=== PATIENT | female | born 1950 | race Caucasian/White ===

== ENCOUNTER 2019-05-22 07:34 | Outpatient (CLI) | payer MEDICARE, BC, OTHER ==
--- NOTE | 2019-05-22 10:40 | MRI ---
MRI LUMBAR SPINE WITHOUT CONTRAST: Date: 05/22/19 INDICATION: History of lumbar radiculopathy and bilateral hip pain. COMPARISON: None. FINDINGS: Bone marrow signal intensity appears within normal limits. The visualized retroperitoneum and paraver tebral soft tissues are normal appearing. At L5-S1, there is a broad based bulge with moderate facet joint degenerative change. There is mild n eural foraminal encroachment, but no definite impingement. At L4-5, there is a broad based bulge with moderate facet joint degenerative change and ligamentum hy pertrophy inducing mild central canal narrowing and mild neural foraminal narrowing bilaterally. At L3-4, there is a broad based bulge with facet hypertrophy, with mild neural foraminal narrowing. At L2-3, there is a broad based bulge. No appreciable central canal or neural foraminal narrowing. At L1-2, there is a broad based bulge, but no appreciated central canal or neural foraminal narrowing . At T12-L1, there is a mild broad based bulge, no appreciable central canal or neural foraminal narrow ing. IMPRESSION: Mild spondylosis of lumbar spine with mild neural foraminal narrowing as detailed above. Mild central canal narrowing is seen at L4-5. POS: OFF
== END 2019-05-22 07:35 | disposition home or self-care (01) ==
LOC: BICMRI 07:34
PROVIDERS: ATTEND Orthopaedic Surgery
DX: M47.26 Other spondylosis with radiculopathy, lumbar region (principal); M48.061 Spinal stenosis, lumbar region without neurogenic claudication
CPT/HCPCS: 72148

== ENCOUNTER 2019-08-11 09:31 | Emergency (ER) | payer MEDICARE, BC, OTHER ==
--- NOTE | 2019-08-11 10:34 | RAD ---
EXAM: Two views chest PROVIDED CLINICAL HISTORY: Cough COMPARISON: 04/25/2009 FINDINGS: Cardiac and mediastinal silhouette appears within normal limits. Lungs appear free of significant opa city. No pleural fluid or pneumothorax apparent. IMPRESSION: No evidence for an acute cardiopulmonary process.
[2019-08-11] MEDS ORDERED: Dexamethasone 10 MG/ML VIAL ONE (10:59)
== END 2019-08-11 11:10 | disposition home or self-care (01) ==
LOC: ERS 09:31
DX: J18.9 Pneumonia, unspecified organism (principal); R06.2 Wheezing
CPT/HCPCS: 71046; 87804; J1100

== ENCOUNTER 2019-08-13 08:49 | Inpatient (IN) | payer MEDICARE, BC, OTHER ==
[2019-08-13 09:24] LABS: #Basophils 0.1 thou/uL (0.0-0.2); #Eosinphils 0.3 thou/uL (0.0-0.7); #Lymphocytes 1.4 thou/uL (1.20-3.40); #Monocytes 1.1 thou/uL (0.11-0.59); #Neutrophils 9.5 thou/uL (1.40-6.50); %Basophils 0.6 % (0.0-1.0); %Eosinophils 2.2 % (0.0-10.0); %Lymphocytes 11.6 % (21.0-51.0); %Monocytes 8.7 % (0.0-10.0); Hemoglobin 13.8 g/dL (12.0-16.0); Mean Corpuscular HGB CONC 33.6 g/dL (32.0-36.0); Mean Corpuscular Hemoglobin 31.4 pg (27.0-31.0); Mean Corpuscular Volume 93.5 fL (78.0-98.0); Mean Platelet Volume 7.3 fL (7.4-10.4); Platelet Count 229 thou/uL (130-400); RBC Distribution Width 12.8 % (11.5-14.5); White Blood Cell (WBC) Count 12.3 thou/uL (4.8-10.8)
--- NOTE | 2019-08-13 09:32 | RAD ---
XR Chest 1 View Portable HISTORY: Cough and shortness of breath COMPARISON: None. FINDINGS: Heart size is within normal limits. There are atherosclerotic changes of the aorta. The isidra gs show chronic change. IMPRESSION: No active intrathoracic disease.
[2019-08-13 09:38] LABS: AST (SGOT) 19 U/L (5-34); Albumin 3.9 g/dL (3.4-4.8); Anion Gap 14 mmol/L (10-20); BUN (Urea Nitrogen) 14 mg/dL (9.8-20.1); Bilirubin, Total 0.4 mg/dL (0.2-1.2); Calc. Creatinine Clearance 0 mL/min (70-130); Calcium 8.7 mg/dL (7.8-10.44); Carbon Dioxide 25 mmol/L (23-31); Chloride 88 mmol/L (98-107); Estimated GFR-MDRD 53; Globulin 2.9 g/dL (2.4-3.5); Glucose 87 mg/dL (80-115); Protein, Total 6.8 g/dL (6.0-8.3); Sodium 124 mmol/L (136-145)
[2019-08-13 09:47] LABS: ALT (SGPT) 17 U/L (8-55); Alkaline Phosphatase 72 U/L (40-110)
[2019-08-13] MEDS ORDERED: Labetalol HCl 100 MG/20 ML VIAL ONE (11:11)
--- NOTE | 2019-08-13 11:53 | CT ---
CTA CHEST WITH CONTRAST: INDICATIONS: Shortness of breath. Tachycardia. Concern for pulmonary embolus. Recent diagnosis of pneumonia. TECHNIQUE: Axial tomograms obtained with multiplanar reconstruction and 3D post processing following angio han col. FINDINGS: The pulmonary arteries show adequate enhancement. No evidence of pulmonary embolus identified. The lungs show chronic lung parenchymal change. There is hyperexpansion. Mild interstitial thickening in the periphery of both lungs is probably chronic. There is patchy infiltrate and/or atelectasis in the posterior left lung base, which may represent mild pneumonia infiltrate. There is nonspecific mediastinal and hilar adenopathy. Paratracheal lymph node is enlarged, measuring up to 1.8 cm. There are prominent carinal and subcarinal lymph nodes and there are mildly enlarged b ilateral hilar lymph nodes. Images through the upper abdomen are unremarkable. IMPRESSION: 1. Patchy infiltrate which has somewhat of a nodular appearance in the posterior left lung base. Foll owup recommended. 2. There are chronic lung parenchymal changes, as described. 3. Nonspecific mediastinal and hilar adenopathy. POS: [facility]
[2019-08-13] MEDS ORDERED: Albuterol Sulfate 2.5 mg/0.5 ml Neb ONE ×2 (12:33→12:35)
[2019-08-13] MEDS ORDERED: Ipratropium Bromide 2.5 ml Neb ONE (12:33)
[2019-08-13] MEDS ORDERED: Ondansetron PF 4 MG/2 ML Vial IVP PRN (16:45)
--- NOTE | 2019-08-13 16:50 | PDOC.HHP ---
Hospitalist HPI - History of Present Illness Shortness of breath History of Present Illness: Ms. Rodríguez is 69 y/o female with hypertension who presented to the ED with c/o shortness of breath. patient was seen at the ER with same complaints 2 days ago , diagnosed with CAP and discharged on doxycycline. She presents back today as her symptoms have worsened. She has associated productive cough with greenish yellow sputum and fever 100.5F. She has a sick contact (her ) who remains with similar symptoms. Their symptoms both started during a 2 weeks cruise last month. Cough was initially non productive. She reports that she is now allergic to doxycycline as she started wheezing more after using the medication. Hospitalist ROS - Review of Systems Constitutional: reports: fever, chills, weakness, malaise Respiratory: reports: cough, shortness of breath, SOB with excertion, pleuritic pain, sputum, wheezing Cardiovascular: reports: chest pain All other systems reviewed; all pertinent +/- noted in HPI/Subj Hospitalist History - Past Medical History Pulmonary: reports: hypertension - Past Surgical History Past Surgical History: reports: Cataract Removal, Total Knee Replacement - Family History Family History: reports: hypertension - Social History Smoking Status: Former smoker (Quit 35 years ago) Alcohol: reports: None Drugs: reports: none Living Situation: With Family - Exam General Appearance: ill appearing Eye: PERRL, anicteric sclera ENT: normocephalic atraumatic Neck: supple, symmetric Heart: RRR, no murmur, no gallops Respiratory: rales, tachypneic, wheezes Gastrointestinal: soft, non-tender, no palpable masses, no guarding Skin: normal turgor, no lesions Neurological: cranial nerve grossly intact, no focal deficits Musculoskeletal: normal tone, normal strength Psychiatric: normal affect, oriented to place Hospitalist Results - Labs Result Diagrams: 08/13/19 09:11 08/13/19 09:11 Lab results: WBC 12.3 thou/uL (4.8-10.8) H 08/13/19 09:11 Hgb 13.8 g/dL (12.0-16.0) 08/13/19 09:11 Hct 41.2 % (36.0-47.0) 08/13/19 09:11 MCV 93.5 fL (78.0-98.0) 08/13/19 09:11 Plt Count 229 thou/uL (130-400) 08/13/19 09:11 Neutrophils % 77.0 % (42.0-75.0) H 08/13/19 09:11 Sodium 124 mmol/L (136-145) L 08/13/19 09:11 Potassium 3.0 mmol/L (3.5-5.1) L 08/13/19 09:11 Chloride 88 mmol/L (98-107) L 08/13/19 09:11 Carbon Dioxide 25 mmol/L (23-31) 08/13/19 09:11 BUN 14 mg/dL (9.8-20.1) 08/13/19 09:11 Creatinine 1.03 mg/dL (0.6-1.1) 08/13/19 09:11 Glucose 87 mg/dL (80-115) 08/13/19 09:11 Lactic Acid 1.2 mmol/L (0.5-2.2) 08/13/19 09:11 Calcium 8.7 mg/dL (7.8-10.44) 08/13/19 09:11 Total Bilirubin 0.4 mg/dL (0.2-1.2) 08/13/19 09:11 AST 19 U/L (5-34) 08/13/19 09:11 ALT 17 U/L (8-55) 08/13/19 09:11 Alkaline Phosphatase 72 U/L (40-110) 08/13/19 09:11 B-Natriuretic Peptide 25.1 pg/mL (0-100) 08/13/19 09:15 Serum Total Protein 6.8 g/dL (6.0-8.3) 08/13/19 09:11 Albumin 3.9 g/dL (3.4-4.8) 08/13/19 09:11 Hospitalist H&P A/P - Plan Plan: Ms Rodríguez is 69 y/o female pw SOB cw CAP # Sepsis secondary to CAP- meeting SIRS with leukocytosis and tachypnea. CT chest with LL patchy infiltrates cw pneumonia. -IV hydration to maintain perfusion. Lactic acid is wnl. -cultures, urine legionella and strep -IV ceftriaxone and azithromycin. was dc'd on doxycycline from ER -Trend labs. #Dyspnea- Related to acute pulm pathology. CTA chest ruled out PE. Probable COPD given hyperextension reported on CT chest. - patient is declining use of steriods and duoneb citing allergies. - received and tolerated decadron in the ER. - for now, supplemental oxygen and IS - will consider xopenex - consult online activist for assistance. #Hypertension- will resume antihypertensive once uploaded. #Hyponatremia- Hypovolemic due to acute illness. -IV hydration -Trend Na. #Hypokalemia- replace DVT ppx- lovenox Patient is full code. Her spouse at bedside is ROBSON
[2019-08-13 18:07] LABS: Troponin I 0.018 ng/mL (< 0.028)
[2019-08-13 18:14] VITALS: BMI 29.8
[2019-08-13] MEDS: Sodium Chloride 0.9% 1,000 ML IV SCH (20:38)
[2019-08-13] MEDS: Potassium Chloride 20 MEQ TAB PO SCH (20:38)
[2019-08-13] MEDS: cefTRIAXone\\ROCEPHIN 1 GM in Sodium Chloride 0.9% 100 ML IVPB SCH (20:50)
[2019-08-13] MEDS: Acetaminophen 325 MG TAB PO PRN (22:03)
[2019-08-13] MEDS: Azithromycin 500 MG in Sodium Chloride 0.9% 250 ML 250 ML IVPB SCH (22:58)
[2019-08-13] MEDS: Levalbuterol HCl 0.63 MG/3 ML NEB NEB SCH (23:08)
[2019-08-13 23:16] LABS: Legionella Urinary Ag Negative (Negative); Strep pneumo Urine Ag NEGATIVE (NEGATIVE)
[2019-08-14] MEDS: Levalbuterol HCl 0.63 MG/3 ML NEB NEB SCH ×3 (07:21→15:29)
[2019-08-14] MEDS: Sodium Chloride 0.9% 1,000 ML IV SCH (08:00)
[2019-08-14 12:06] LABS: Hemoglobin 13.2 g/dL (12.0-16.0); Mean Corpuscular HGB CONC 34.4 g/dL (32.0-36.0); Mean Corpuscular Hemoglobin 31.9 pg (27.0-31.0); Mean Corpuscular Volume 92.9 fL (78.0-98.0); Mean Platelet Volume 6.8 fL (7.4-10.4); Platelet Count 214 thou/uL (130-400); RBC Distribution Width 12.8 % (11.5-14.5); Red Blood Cell (RBC) Count 4.14 mill/uL (4.20-5.40); White Blood Cell (WBC) Count 7.9 thou/uL (4.8-10.8)
[2019-08-14 12:29] LABS: Anion Gap 13 mmol/L (10-20); BUN (Urea Nitrogen) 6 mg/dL (9.8-20.1); Calc. Creatinine Clearance 89 mL/min (70-130); Calcium 9.8 mg/dL (7.8-10.44); Carbon Dioxide 26 mmol/L (23-31); Chloride 99 mmol/L (98-107); Estimated GFR-MDRD 72; Glucose 130 mg/dL (80-115); Potassium 3.1 mmol/L (3.5-5.1); Sodium 135 mmol/L (136-145)
[2019-08-14] MEDS ORDERED: Potassium Chloride 20 MEQ TAB PO SCH ×2 (13:15→18:00)
--- NOTE | 2019-08-14 14:51 | CON ---
DATE OF CONSULTATION: HISTORY OF PRESENT ILLNESS: Ms. Rodríguez is a 69-year-old female, who has, for several weeks, had a cough. She has seen her doctor twice, had been to the emergency room recently. She has seen on 08/11 in the ER and then again yesterday and admitted. A CT pulmonary angiogram was done in the emergency room shows a tiny infiltrate in her left base. There are no pulmonary infiltrates seen. PAST MEDICAL HISTORY: Remarkable for hypertension, cataract surgery, and knee replacement. FAMILY HISTORY: Negative for lung disease in early age. SOCIAL HISTORY: She told me she has never smoked, but the admitting physician says she smoked until 35 years ago. I doubt she has smoked enough to do any damage. She is not a drinker. She does not use drugs. Her is in the room with her. REVIEW OF SYSTEMS: Ten-point review of systems is otherwise negative. Her main complaint is cough and fatigue. PHYSICAL EXAMINATION: VITAL SIGNS: This was interesting. She is afebrile. Heart rate is 92, respiratory rate is 20, oximetry is 92% to 95% on room air, and blood pressure 150/67. GENERAL: She was coughing when I walked in the room. She was talking in one word sentences and coughing continuously. I suggested trying Phenergan with codeine to suppress her cough in the evenings and she went from talking in one word sentences to in a very loud voice telling me that she is allergic to everything and please look at the list in the computer at the nurse's station. She went from one word sentences to complete sentences with one breath in a very loud voice HEAD AND NECK: Unremarkable. LUNGS: Clear. HEART: Regular rhythm. ABDOMEN: Soft. EXTREMITIES: Without clubbing, cyanosis, or edema. ALLERGIES: REPORTED ALBUTEROL, AMLODIPINE, AZILSARTAN, COREG, CHLORTHALIDONE , CODEINE, WELCHOL, CYMBALTA, RODY, HYDRALAZINE, HYDROCHLOROTHIAZIDE, LISINOPRIL, SOLU-MEDROL, NONSTEROIDALS, BENICAR, PREDNISONE, LYRICA, AND CRESTOR. IMPRESSION: Subacute illness with a significant cough. This still could be viral. If she has pneumonia, it is a tiny infiltrate in her left base. Her behavior while I was in the room suggests that there is some component of secondary gain from this illness. There really are not any other therapeutic options from my standpoint other than possibly adding Tessalon Perles to suppress her cough or Robitussin DM cough syrup. She has no history of asthma or chronic obstructive pulmonary disease. There is nothing to suggest that she has pulmonary fibrosis or interstitial lung disease. We will sign off and see her as needed in the future. I would recommend a follow up noncontrast chest CT in 4-6 weeks to confirm abnormalities at lung base cleared. Job ID: [id number] [facility]
[2019-08-14] MEDS: Potassium Chloride 20 MEQ TAB PO SCH (15:00)
--- NOTE | 2019-08-14 15:29 | PDOC.HOSPP ---
- Subjective Encounter Date: 08/14/19 Encounter Time: 15:26 Subjective: THe patient reports persistent shortness of breath since the weekend, productive cough with yellow phlegm, chest congestion. She says she feels hot, fever for her is greater than 97.5 temperature. She denies chest pain. She feels no improvement with persistent antibiotics. She has never had a heart attack before. - Objective Vital Signs & Weight: Vital Signs (12 hours) Temp Pulse Resp BP Pulse Ox 08/14/19 15:10 106 H 95 08/14/19 07:58 97.7 F 92 20 150/67 H 95 08/14/19 07:21 89 20 99 08/14/19 03:47 97.9 F 97 20 151/73 H 94 L Weight Admit Weight 185 lb Weight 185 lb I&O: 08/13/19 08/14/19 08/15/19 06:59 06:59 06:59 Intake Total 2280 Output Total 1400 Balance 880 Result Diagrams: 08/14/19 11:57 08/14/19 11:57 Hospitalist ROS - Medication Medications: Active Medications Generic Name Dose Route Start Last Admin Trade Name Freq PRN Reason Stop Dose Admin Acetaminophen 650 mg 08/13/19 16:45 08/13/19 22:03 Tylenol PO 650 mg Q6H PRN Administration Fever > 101 Azithromycin 500 mg/ Sodium 250 mls @ 250 mls/hr 08/13/19 21:00 08/13/19 22: 58 Chloride IVPB 250 mls Q24HR MADELIN Administration Ceftriaxone Sodium 1 gm/ 100 mls @ 200 mls/hr 08/13/19 20:00 08/13/19 20:50 Sodium Chloride IVPB 100 mls Q24HR MADELIN Administration Sodium Chloride 1,000 mls @ 100 mls/hr 08/13/19 16:45 08/14/19 08:00 Normal Saline 0.9% IV 1,000 mls .Q10H MADELIN Administration Levalbuterol HCl 0.63 mg 08/13/19 23:00 08/14/19 15:10 Xopenex NEB 0.63 mg [id number] MADELIN Administration - Exam General Appearance: NAD, awake alert Eye: PERRL, anicteric sclera ENT: normocephalic atraumatic, no oropharyngeal lesions Neck: supple, symmetric, no JVD, no thyromegaly Heart: RRR, no murmur, no gallops, no rubs Respiratory - other findings: bilateral diffuse crackles Gastrointestinal: soft, non-tender, non-distended, normal bowel sounds Extremities: no cyanosis, no clubbing, no edema Skin: normal turgor, no lesions, no rashes Neurological: cranial nerve grossly intact, normal sensation to touch, no focal deficits, no new deficit Hosp A/P - Plan Chest X ray: no acute disease CTA thorax: patchy infiltrate with somewhat nodular appearance in the posterior left lung. Nonspecific mediastinal and hilar adenopathy This is a 69 year old female who presented with persistent shortness of breath since tuesday, had no improvement with doxycycline at home Acute hypoxic respiratory failure possibliy secondary to LLL pneumonia vs cardiac etiology - CTA showed no PE but LLL infiltrate with mediastinal and hilar adenopathy - started on ceftriaxone and azithromycin, however has persistent rales/cough/ shortness of breath. WBC down to normal from 12 yesterday -continue current antibiotics for now given improvement in leukocytosis. Urine legionella and urine strep negative - will check procalcitonin, troponins x 2 , ECHO. If spikes fever, will consider switching to vanc and zosyn. Blood cultures negative x 2, flu negative , will check respiratory viral panel - atrovent scheduled - mucinex scheduled - pulm consulted, did not think this was pulmonary fibrosis. Patient denies fevers, chills, night sweats or weight loss Hypokalemia - potassium 3.1, given 40 meq, will recheck Hyponatremia - improved from 124 to 135 - will stop IV fluids given significant jump in sodium DVT prophylaxis: lovenox Code status: full code
[2019-08-14] MEDS ORDERED: Ipratropium Bromide 2.5 ml Neb NEB PRN (15:32)
[2019-08-14 17:19] LABS: Hemoglobin 12.8 g/dL (12.0-16.0); Mean Corpuscular HGB CONC 33.9 g/dL (32.0-36.0); Mean Corpuscular Hemoglobin 31.2 pg (27.0-31.0); Mean Corpuscular Volume 92.3 fL (78.0-98.0); Mean Platelet Volume 7.3 fL (7.4-10.4); Platelet Count 211 thou/uL (130-400); RBC Distribution Width 12.7 % (11.5-14.5); White Blood Cell (WBC) Count 8.8 thou/uL (4.8-10.8)
[2019-08-14 17:26] LABS: Potassium 3.2 mmol/L (3.5-5.1)
[2019-08-14] MEDS: Ipratropium Bromide 2.5 ml Neb NEB SCH (18:04)
[2019-08-14] MEDS: cefTRIAXone\\ROCEPHIN 1 GM in Sodium Chloride 0.9% 100 ML IVPB SCH (20:47)
[2019-08-14] MEDS: Azithromycin 500 MG in Sodium Chloride 0.9% 250 ML 250 ML IVPB SCH (20:47)
[2019-08-14] MEDS: Acetaminophen 325 MG TAB PO PRN (20:48)
[2019-08-14] MEDS: Enoxaparin Sodium 40 MG/0.4 ML SYRINGE SC SCH (20:48)
[2019-08-15] MEDS: Ipratropium Bromide 2.5 ml Neb NEB SCH ×2 (00:24→07:19)
[2019-08-15 05:08] LABS: Anion Gap 13 mmol/L (10-20); BUN (Urea Nitrogen) 7 mg/dL (9.8-20.1); Calc. Creatinine Clearance 91 mL/min (70-130); Calcium 9.9 mg/dL (7.8-10.44); Carbon Dioxide 25 mmol/L (23-31); Chloride 100 mmol/L (98-107); Estimated GFR-MDRD 74; Glucose 99 mg/dL (80-115); Potassium 3.5 mmol/L (3.5-5.1); Sodium 134 mmol/L (136-145)
[2019-08-15] MEDS ORDERED: Benzonatate 100 MG CAP PO PRN (11:36)
--- NOTE | 2019-08-15 11:44 | PDOC.HOSPP ---
- Subjective Encounter Date: 08/15/19 Encounter Time: 11:42 Subjective: THe patient continues to complain of productive cough with yellow phlegm. Shortness of breath has improved. Patient upset about frequent blood draws. Explained about troponins and how labs are drawn early in the morning here. Advised that patient does not need labs tomorrow. Asked about medicine for cough. Patient states duoneb makes her choke, albuterol makes her throat swell, mucinex she is allergic too, tessalon pearls didn't work in the past but she is willing to try it again. Also gives history of allergies. She states claritin didn't work for her, zoey gave her hives. She has not tried zyrtec before. Patient asked why she isn't getting her HCTZ, explained her potassium was low yesterday and will plan to hold unless BP goes up significantly - Objective Vital Signs & Weight: Vital Signs (12 hours) Temp Pulse Resp BP Pulse Ox 08/15/19 11:05 97.7 F 88 18 151/70 H 94 L 08/15/19 08:35 97.8 F 65 20 169/78 H 94 L 08/15/19 05:00 97.9 F 84 16 148/69 H 93 L 08/15/19 00:24 81 16 95 Weight Admit Weight 185 lb Weight 187 lb 9.6 oz I&O: 08/14/19 08/15/19 08/16/19 06:59 06:59 06:59 Intake Total 2280 680 Output Total 1400 Balance 880 680 Result Diagrams: 08/14/19 16:51 08/15/19 04:24 Additional Labs: Accuchecks 08/14/19 17:15 POC Glucose 114 H Hospitalist ROS - Review of Systems Constitutional: denies: fever, chills Respiratory: reports: cough Cardiovascular: denies: chest pain, palpitations - Medication Medications: Active Medications Generic Name Dose Route Start Last Admin Trade Name Freq PRN Reason Stop Dose Admin Acetaminophen 650 mg 08/13/19 16:45 08/14/19 20:48 Tylenol PO 650 mg Q6H PRN Administration Fever > 101 Enoxaparin Sodium 40 mg 08/14/19 21:00 08/14/19 20:48 Lovenox SC 40 mg 2100 MADELIN Administration Azithromycin 500 mg/ Sodium 250 mls @ 250 mls/hr 12/23/19 21:00 08/14/19 20: 47 Chloride IVPB 250 mls Q24HR MADELIN Administration Ceftriaxone Sodium 1 gm/ 100 mls @ 200 mls/hr 08/13/19 20:00 08/14/19 20:47 Sodium Chloride IVPB 100 mls Q24HR MADELIN Administration - Exam General Appearance: NAD, awake alert Eye: PERRL, anicteric sclera ENT: normocephalic atraumatic, no oropharyngeal lesions Neck: supple, symmetric, no JVD, no thyromegaly, no carotid bruit Heart: RRR, no murmur, no gallops, no rubs Respiratory - other findings: crackles left lower lobe Gastrointestinal: soft, non-tender, non-distended, normal bowel sounds Extremities: no cyanosis, no clubbing, no edema Hosp A/P - Plan Chest X ray: no acute disease CTA thorax: patchy infiltrate with somewhat nodular appearance in the posterior left lung. Nonspecific mediastinal and hilar adenopathy This is a 69 year old female who presented with persistent shortness of breath since tuesday, had no improvement with doxycycline at home #Acute hypoxic respiratory failure possibliy secondary to LLL pneumonia vs cardiac etiology #Cough - CTA showed no PE but LLL infiltrate with mediastinal and hilar adenopathy - continue ceftriaxone and azithromycin. Procalcitonin negative however has improvement with antibiotics - Urine legionella and urine strep negative - troponin negative times three, ECHO pending, respiratory viral panel negative - add tessalon pearls prn - trial of zyrtec daily. Patient wants to be watched for adverse effects while taking it. Also add pepcid 20 mg bid - pulm consulted, did not think this was pulmonary fibrosis. Patient denies fevers, chills, night sweats or weight loss Hypokalemia-resolved Hyponatremia- resolved DVT prophylaxis: lovenox Code status: full code
[2019-08-15] MEDS: Enoxaparin Sodium 40 MG/0.4 ML SYRINGE SC SCH (20:16)
[2019-08-15] MEDS: cefTRIAXone\\ROCEPHIN 1 GM in Sodium Chloride 0.9% 100 ML IVPB SCH (20:16)
[2019-08-15] MEDS: Famotidine 20 MG TAB PO SCH (20:16)
[2019-08-15] MEDS: Azithromycin 500 MG in Sodium Chloride 0.9% 250 ML 250 ML IVPB SCH (20:16)
[2019-08-15] MEDS: guaiFENesin/DM ER PO SCH (20:17)
[2019-08-15] MEDS: Acetaminophen 325 MG TAB PO PRN (21:43)
[2019-08-16] MEDS ORDERED: Loratadine 10 MG TAB PO SCH ×2 (09:00→10:45)
[2019-08-16] MEDS: guaiFENesin/DM ER PO SCH (09:57)
--- NOTE | 2019-08-16 10:02 | PDOC.HOSPP ---
- Subjective Encounter Date: 08/16/19 Encounter Time: 12:00 Subjective: Patient reports unchanged cough. SOB a bit better. Eating a bit better also. - Objective Vital Signs & Weight: Vital Signs (12 hours) Temp Pulse Resp BP Pulse Ox 08/16/19 09:18 93 L 08/16/19 08:00 97.8 F 83 18 147/70 H 93 L 08/16/19 04:00 98.4 F 80 20 146/68 H 94 L Weight Admit Weight 185 lb Weight 189 lb I&O: 08/15/19 08/16/19 08/17/19 06:59 06:59 06:59 Intake Total 680 1340 Output Total 700 Balance 680 640 Result Diagrams: 08/14/19 16:51 08/15/19 04:24 Hospitalist ROS - Review of Systems Constitutional: denies: fever, chills Respiratory: reports: cough. denies: shortness of breath Cardiovascular: denies: chest pain, palpitations, orthopnea Gastrointestinal: denies: nausea, vomiting, abdominal pain - Medication Medications: Active Medications Generic Name Dose Route Start Last Admin Trade Name Freq PRN Reason Stop Dose Admin Acetaminophen 650 mg 08/13/19 16:45 08/15/19 21:43 Tylenol PO 650 mg Q6H PRN Administration Fever > 101 Benzonatate 100 mg 08/15/19 11:36 08/15/19 13:40 Tessalon PO 100 mg Q4H PRN Administration Cough Enoxaparin Sodium 40 mg 08/14/19 21:00 08/15/19 20:16 Lovenox SC 40 mg 2100 MADELIN Administration Famotidine 20 mg 08/15/19 21:00 08/15/19 20:16 Pepcid PO Not Given BID MADELIN Guaifenesin/Dextromethorphan 1 tab 08/15/19 21:00 08/16/19 09:57 Mucinex Dm PO Not Given Q12HR MADELIN Azithromycin 500 mg/ Sodium 250 mls @ 250 mls/hr 08/13/19 21:00 08/15/19 20: 16 Chloride IVPB 250 mls Q24HR MADELIN Administration Ceftriaxone Sodium 1 gm/ 100 mls @ 200 mls/hr 08/13/19 20:00 08/15/19 20:16 Sodium Chloride IVPB 100 mls Q24HR MADELIN Administration Loratadine 10 mg 08/16/19 09:00 08/16/19 09:57 Claritin PO Not Given DAILY MADELIN - Exam General Appearance: NAD, awake alert Eye: anicteric sclera ENT: moist mucosa Heart: RRR, no murmur, no gallops, no rubs Respiratory: CTAB, no wheezes, no rales, no ronchi Respiratory - other findings: dry intermittent coughing fits Gastrointestinal: soft, non-tender, non-distended, normal bowel sounds Psychiatric: normal affect, normal behavior, A&O x 3 Hosp A/P (1) Pneumonia Code(s): J18.9 - PNEUMONIA, UNSPECIFIED ORGANISM Status: Acute Plan: likely viral, possibly very small pneumonia per CT, will switch to oral antibiotics (2) Acute respiratory failure with hypoxia Code(s): J96.01 - ACUTE RESPIRATORY FAILURE WITH HYPOXIA Status: Resolved Plan: off oxygen (3) Hypertension Code(s): I10 - ESSENTIAL (PRIMARY) HYPERTENSION Status: Acute - Plan continue antibiotics, respiratory therapy ECHO taken, results pending but will neg BNP and Troponins I suspect it will be normal Switch to oral antibiotics, d/c home today, f/u PCP
[2019-08-16] MEDS: Acetaminophen 325 MG TAB PO PRN (10:43)
[2019-08-16] MEDS: Famotidine 20 MG TAB PO SCH (10:50)
[2019-08-16] MEDS ORDERED: Chlorthalidone 25 MG TAB PO SCH (12:30)
[2019-08-16 14:27] VITALS: BP 114/57; TEMP 97.3
--- NOTE | 2019-08-16 16:28 | PDOC.EVN ---
Event Note - Event Note Event Note: Discharge Summary dictated: #[id number]
--- NOTE | 2019-08-16 16:58 | DIS ---
DATE OF ADMISSION: 08/13/2019 DATE OF DISCHARGE: 08/16/2019 PRIMARY CARE PHYSICIAN: Dr. Botello. REASON FOR ADMISSION: Pneumonia. DIAGNOSES AT DISCHARGE: 1. Pneumonia, likely viral, secondary to RSV. 2. Acute respiratory failure with hypoxia, resolved. 3. Hypertension. PROCEDURES: CT scan of the chest with and without contrast showing patchy infiltrate, which is somewhat of a nodular appearance of the posterior left lung base, along with chronic lung parenchymal changes and nonspecific mediastinal and hilar adenopathy. CONSULTATIONS: Pulmonology, Dr. Fleming. SUMMARY OF HOSPITAL COURSE: This is a 69-year-old white female with a prolonged cough greater than 3 weeks. She had some significant shortness of breath beginning on Tuesday, the day of admission, so she was seen in the emergency room. She had been diagnosed with community-acquired pneumonia in the ER 2 days previously and discharged on doxycycline, but the patient said that the symptoms have worsened. She came in with a fever of 100.5. The patient was positive for RSV in the emergency room. She had a CT scan with the above results. The patient was admitted and given IV antibiotics. She was a little bit hypoxic on room air when she first came in, so she was given supplementary oxygen. The patient improved during her hospitalization. Dr. lFeming saw her, reported that her CT was consistent with a viral illness, possibly a very tiny infiltrate from a pneumonia. The patient is limited and what medications she will take, she states most things either caused her to choke up or do not have any effect. We did recommend that she try Zyrtec. We did try some Tessalon Perles with her, which is only cough medicine that she says she can take it and did not help. The patient was doing well with continued cough, but no hypoxia the day of discharge, so she is being discharged home. DISCHARGE MANAGEMENT: Discharged home. FOLLOWUP: Follow up with her primary care physician, Dr. Botello in [address] Fleming in 3 to 4 weeks. ACTIVITY: As tolerated. DIET: Healthy heart diet. MEDICATIONS: 1. Azithromycin 250 mg p.o. daily for 2 more days. 2. Omnicef 300 mg twice a day for 4 more days. 3. Zyrtec [id number] 10 mg daily. 4. Continue acetaminophen as needed. 5. Chlorthalidone 25 mg daily. 6. Multivitamin daily. 7. Tramadol as needed for pain. Job ID: [id number]
[2019-08-16] MEDS ORDERED: Azithromycin 250 MG TAB PO SCH (18:00)
[2019-08-16] MEDS ORDERED: Cefdinir 300 MG CAP PO SCH (21:00)
--- NOTE | 2019-08-17 03:57 | PQF ---
[employer] KRISTINE See RYAN ANDREW MD [id number] [id number] CLINICAL DOCUMENTATION CLARIFICATION FORM: POST DISCHARGE Addendum to original discharge summary date: ____ Late entry note date: __ DATE: 08/17/2019 ATTN:LEANNE FUENTES MD Please exercise your independent, professional judgment in responding to the clarification form. Clinical indicators are provided on the bottom of this form for your review Please check appropriate box(s) to clarify if the following diagnosis has been ruled in or ruled out: ___SEPSIS (CDI/Coding list diagnosis here) [ X ] Ruled in diagnosis [ ] Continue to treat [ X ] Resolved [ ] Ruled out diagnosis [ ] Cannot rule out diagnosis [ ] Other diagnosis [ ] Unable to determine In addition, please specify: Present on Admission (POA): [ X ] Yes [ ] No [ ] Unable to determine For continuity of documentation, please document condition throughout progress notes and discharge summary. Thank You. CLINICAL INDICATORS - SIGNS / SYMPTOMS / LABS Fever 100.5 F - Documented in H&P on 08/13 by Brooke Magaña MD Sepsis 2/2 CAP - Documented in H&P on 08/13 by Brooke Magaña MD Respiration Rate 36 on 08/13 and 22 on 08/14 - Documented in Vital signs Pulse 107 on 08/15 - Documented in Vital signs BP 114/57 on 08/16 - Documented in Vital signs Meeting SIRS with Leukocytosis and tachypnea - Documented in H&P on 08/13 by Brooke Magaña MD Elevated WBC 12.3 on 08/13 - Documented in Laboratory RISK FACTORS RSV Pneumonia - Documented in DS on 08/16 by LEANNE NEWELL MD HTN Acute hypoxic respiratory failure - Documented in DS on 08/16 by LEANNE NEWELL MD TREATMENTS IV ceftriaxone and Azithromycin - Documented in H&P on 08/13 by Brooke Magaña MD Azithromycin 250 mg daily - Documented in DS on 08/16 by LEANNE NEWELL MD (This form is maintained as a part of the permanent medical record) 2014 [employer]. All Rights Reserved [email or web address] [not provided] MTDD
== END 2019-08-16 14:45 | disposition home or self-care (01) | DRG 871 ==
LOC: ERS 08:49 → 2SW 15:24 → OBSVTOIN 18:17 → 2NO 22:15
PROVIDERS: ADMIT Hospitalist; ATTEND Hospitalist
DX: A41.9 Sepsis, unspecified organism (principal); J12.1 Respiratory syncytial virus pneumonia; J96.01 Acute respiratory failure with hypoxia; E87.1 Hypo-osmolality and hyponatremia; Z87.891 Personal history of nicotine dependence; Z96.659 Presence of unspecified artificial knee joint; Z98.49 Cataract extraction status, unspecified eye; E87.6 Hypokalemia; I10 Essential (primary) hypertension; Z88.8 Allergy status to other drugs, medicaments and biological substances; Z88.5 Allergy status to narcotic agent
CPT/HCPCS: 36415; 36416; 71045; 71046; 71275; 80048; 80053; 83605; 83880; 84145; 84484; 85025; 85027; 87040; 87449; 87633; 87804; 87899; 93005; 93306; 94640; 96361; 96374; J0456; J0696; J1100; J1650; J3490; J7050; J7611; J7614

== ENCOUNTER 2020-01-24 10:17 | Outpatient (CLI) | payer MEDICARE, BC, OTHER ==
--- NOTE | 2020-01-24 12:20 | RAD ---
2 VIEW CHEST: Date: 01/24/2020 HISTORY: Cough and dyspnea. History of pneumonia. COMPARISON: 08/11/2019. FINDINGS: No evidence of focal infiltrate. Heart and mediastinum unremarkable. Vasculature normal. Mild interst itial prominence appears stable. IMPRESSION: No acute findings. No interval change. POS: AGW
== END 2020-01-24 10:18 | disposition home or self-care (01) ==
LOC: BICRAD 10:17
PROVIDERS: ATTEND Family Medicine
DX: Z87.01 Personal history of pneumonia (recurrent) (principal)
CPT/HCPCS: 71046

== ENCOUNTER 2021-12-13 10:34 | Inpatient (IN) | payer MEDICARE, BC, OTHER ==
[2021-12-13 11:05] LABS: #Eosinphils 0.2 thou/uL (0.0-0.7); #Lymphocytes 1.3 thou/uL (1.20-3.40); #Monocytes 0.5 thou/uL (0.11-0.59); %Basophils 0.8 % (0.0-1.0); %Eosinophils 2.8 % (0.0-10.0); %Lymphocytes 21.6 % (21.0-51.0); %Monocytes 8.4 % (0.0-10.0); %Neutrophils 66.4 % (42.0-75.0); Hemoglobin 11.6 g/dL (12.0-16.0); Mean Corpuscular HGB CONC 33.4 g/dL (32.0-36.0); Mean Corpuscular Hemoglobin 31.7 pg (27.0-31.0); Mean Corpuscular Volume 94.9 fL (78.0-98.0); Mean Platelet Volume 6.6 fL (7.4-10.4); Platelet Count 330 thou/uL (130-400); RBC Distribution Width 12.9 % (11.5-14.5); Red Blood Cell (RBC) Count 3.65 mill/uL (4.20-5.40); White Blood Cell (WBC) Count 5.9 thou/uL (4.8-10.8)
[2021-12-13 11:24] LABS: ALT (SGPT) 9 U/L (8-55); AST (SGOT) 13 U/L (5-34); Albumin 4.1 g/dL (3.4-4.8); Alkaline Phosphatase 72 U/L (40-110); Anion Gap 15 mmol/L (10-20); BUN (Urea Nitrogen) 8 mg/dL (9.8-20.1); Bilirubin, Total 0.7 mg/dL (0.2-1.2); Calc. Creatinine Clearance 0 mL/min (70-130); Calcium 10.3 mg/dL (7.8-10.44); Carbon Dioxide 23 mmol/L (23-31); Chloride 100 mmol/L (98-107); Glucose 120 mg/dL (83-110); Lipase 27 U/L (8-78); Potassium 3.2 mmol/L (3.5-5.1); Protein, Total 7.1 g/dL (5.8-8.1); Sodium 135 mmol/L (136-145)
[2021-12-13] MEDS ORDERED: Pantoprazole 40 MG VIAL ONE (12:16)
[2021-12-13] MEDS ORDERED: Ondansetron PF 4 MG/2 ML Vial ONE (12:16)
[2021-12-13] MEDS ORDERED: Potassium Chloride 40 MEQ in Sodium Chloride 0.9% 250 ML 250 ML IVPB SCH (12:30)
[2021-12-13] MEDS ORDERED: NS 0.9% w/ 40 MEQ KCL 1,000 ML IV SCH (12:30)
[2021-12-13] MEDS ORDERED: Ondansetron ODT 4 MG TAB PO PRN (12:57)
[2021-12-13] MEDS ORDERED: Ondansetron PF 4 MG/2 ML Vial IVP PRN (12:57)
[2021-12-13 13:04] LABS: Magnesium 1.7 mg/dL (1.6-2.6)
[2021-12-13 13:14] LABS: Phosphorus 2.8 mg/dL (2.3-4.7)
[2021-12-13] MEDS ORDERED: Electrolyte Replacement Protocol 1 EACH FS SCH (13:15)
[2021-12-13 14:58] LABS: Troponin I Less than 0.010 ng/mL (< 0.028)
[2021-12-13] MEDS ORDERED: Fentanyl 100 MCG/2 ML VIAL ONE (15:19)
[2021-12-13 17:30] LABS: Troponin I Less than 0.010 ng/mL (< 0.028)
[2021-12-13 17:43] LABS: Bacteria/HPF None Seen HPF (None Seen); Bilirubin Negative (Negative); Blood, Urine Negative (Negative); Clarity Clear (Clear); Glucose, Urine (Dipstick) Normal (Negative); Ketone, Urine 10 mg/dL (Negative); Leukocyte 25 Leu/uL (Negative); Nitrite Negative (Negative); Protein, Urine (Dipstick) Negative (Neg-Trace); RBC/HPF 0-3 HPF (0-3); Specific Gravity, Urine 1.012 (1.002-1.036); Squamous Epithelial 0-3 HPF (0-3); Urobilinogen Normal mg/dL (Less than 2); WBC/HPF 0-3 HPF (0-3)
[2021-12-13] MEDS: Sodium Chloride 0.9% 1,000 ML IV SCH (21:37)
[2021-12-13] MEDS: traMADol HCl 50 MG TAB PO PRN (21:38)
[2021-12-13] MEDS: Enoxaparin Sodium 40 MG/0.4 ML SYRINGE SC SCH (21:38)
[2021-12-13] MEDS: Acetaminophen 325 MG TAB PO PRN (23:27)
[2021-12-14 04:33] LABS: #Basophils 0.1 thou/uL (0.0-0.2); #Eosinphils 0.4 thou/uL (0.0-0.7); #Monocytes 0.6 thou/uL (0.11-0.59); #Neutrophils 3.5 thou/uL (1.40-6.50); %Basophils 1.4 % (0.0-1.0); %Eosinophils 6.5 % (0.0-10.0); %Lymphocytes 30.3 % (21.0-51.0); %Neutrophils 52.9 % (42.0-75.0); Mean Corpuscular HGB CONC 33.1 g/dL (32.0-36.0); Mean Corpuscular Hemoglobin 32.2 pg (27.0-31.0); Mean Corpuscular Volume 97.1 fL (78.0-98.0); Mean Platelet Volume 7.1 fL (7.4-10.4); Platelet Count 311 thou/uL (130-400); RBC Distribution Width 12.9 % (11.5-14.5); Red Blood Cell (RBC) Count 3.43 mill/uL (4.20-5.40); White Blood Cell (WBC) Count 6.6 thou/uL (4.8-10.8)
[2021-12-14 04:56] LABS: Anion Gap 13 mmol/L (10-20); BUN (Urea Nitrogen) 7 mg/dL (9.8-20.1); Calc. Creatinine Clearance 91 mL/min (70-130); Calcium 9.8 mg/dL (7.8-10.44); Carbon Dioxide 25 mmol/L (23-31); Chloride 105 mmol/L (98-107); Glucose 96 mg/dL (83-110); Potassium 3.6 mmol/L (3.5-5.1); Sodium 139 mmol/L (136-145)
[2021-12-14] MEDS: traMADol HCl 50 MG TAB PO PRN ×2 (07:02→21:58)
[2021-12-14] MEDS: Chlorthalidone 25 MG TAB PO SCH (08:38)
[2021-12-14] MEDS: Multivitamin W/ Minerals 1 TAB PO SCH (08:38)
[2021-12-14] MEDS: Acetaminophen 325 MG TAB PO PRN (08:39)
[2021-12-14] MEDS: Sodium Chloride 0.9% 1,000 ML IV SCH ×3 (14:44→18:25)
[2021-12-14] MEDS: Potassium Chloride 20 MEQ TAB PO SCH (14:44)
[2021-12-14] MEDS: Enoxaparin Sodium 40 MG/0.4 ML SYRINGE SC SCH (21:47)
[2021-12-14 23:34] LABS: SARS-CoV-2 PCR by NAA Not Detected (NotDetected)
[2021-12-15] MEDS: Acetaminophen 325 MG TAB PO PRN ×2 (02:30→08:36)
[2021-12-15] MEDS ORDERED: traMADol HCl 50 MG TAB PO SCH (02:30)
[2021-12-15 06:54] LABS: #Basophils 0.1 thou/uL (0.0-0.2); #Eosinphils 0.5 thou/uL (0.0-0.7); #Lymphocytes 1.8 thou/uL (1.20-3.40); #Monocytes 0.5 thou/uL (0.11-0.59); #Neutrophils 3.1 thou/uL (1.40-6.50); %Basophils 0.9 % (0.0-1.0); %Eosinophils 7.7 % (0.0-10.0); %Lymphocytes 30.5 % (21.0-51.0); %Monocytes 9.1 % (0.0-10.0); %Neutrophils 51.9 % (42.0-75.0); Hemoglobin 10.7 g/dL (12.0-16.0); Mean Corpuscular HGB CONC 33.6 g/dL (32.0-36.0); Mean Corpuscular Hemoglobin 32.2 pg (27.0-31.0); Mean Corpuscular Volume 95.7 fL (78.0-98.0); Mean Platelet Volume 6.6 fL (7.4-10.4); Platelet Count 274 thou/uL (130-400); RBC Distribution Width 12.7 % (11.5-14.5); Red Blood Cell (RBC) Count 3.33 mill/uL (4.20-5.40)
[2021-12-15 07:11] LABS: Anion Gap 13 mmol/L (10-20); BUN (Urea Nitrogen) 4 mg/dL (9.8-20.1); Calc. Creatinine Clearance 106 mL/min (70-130); Calcium 9.7 mg/dL (7.8-10.44); Carbon Dioxide 22 mmol/L (23-31); Chloride 104 mmol/L (98-107); Glucose 94 mg/dL (83-110); Potassium 3.6 mmol/L (3.5-5.1); Sodium 135 mmol/L (136-145)
[2021-12-15 08:21] VITALS: BP 165/77; TEMP 98.4
[2021-12-15] MEDS: Chlorthalidone 25 MG TAB PO SCH (08:30)
[2021-12-15] MEDS: Multivitamin W/ Minerals 1 TAB PO SCH (08:33)
[2021-12-15] MEDS: Potassium Chloride 20 MEQ TAB PO SCH (08:34)
[2021-12-15] MEDS: traMADol HCl 50 MG TAB PO PRN (08:36)
[2021-12-15 09:51] VITALS: BMI 34.1
== END 2021-12-15 11:15 | disposition home or self-care (01) | DRG 392 ==
LOC: ERS 10:34 → ERHOLD 12:50 → OBSVTOIN 12:50 → 2NO 17:56 → T4-A 12-14 16:36
PROVIDERS: ADMIT Internal Medicine; ATTEND Internal Medicine
DX: A08.4 Viral intestinal infection, unspecified (principal); E87.1 Hypo-osmolality and hyponatremia; Z20.822 Contact with and (suspected) exposure to COVID-19; I10 Essential (primary) hypertension; J45.909 Unspecified asthma, uncomplicated; Z96.653 Presence of artificial knee joint, bilateral; D64.9 Anemia, unspecified; E87.6 Hypokalemia; E78.5 Hyperlipidemia, unspecified; E86.0 Dehydration; Z88.8 Allergy status to other drugs, medicaments and biological substances; Z88.6 Allergy status to analgesic agent; Z79.891 Long term (current) use of opiate analgesic; Z79.899 Other long term (current) drug therapy; Z83.3 Family history of diabetes mellitus; Z82.49 Family history of ischemic heart disease and other diseases of the circulatory system; Z82.5 Family history of asthma and other chronic lower respiratory diseases; Z98.41 Cataract extraction status, right eye; Z98.42 Cataract extraction status, left eye
CPT/HCPCS: 36415; 80048; 80053; 81001; 83605; 83630; 83690; 83735; 84100; 84484; 85025; 87045; 87046; 87077; 87081; 87324; 87427; 87449; 87798; 93005; 96374; 96375; C9113; J1650; J2405; J3010; J3480; J7050; U0003; U0005